=== PATIENT | female | born 1985 | race Two or more races ===

== ENCOUNTER 2016-11-01 19:01 | Emergency (ER) | payer BC ==
[2016-11-01] MEDS ORDERED: CYMBALTA PO (19:15)
[2016-11-01 19:56] LABS: AMPHETAMINE NEG (NEG); BARBITURATES NEG (NEG); BENZODIAZEPINES NEG (NEG); COCAINE NEG (NEG); MARIJUANA NEG (NEG); OPIATES NEG (NEG); TRICYCLIC ANTIDEPRESSANTS NEG (NEG); U METHADONE NEG (NEG)
== END 2016-11-01 20:27 | disposition home or self-care (01) ==
LOC: SED 19:01
PROVIDERS: Emergency Medicine
DX: F41.1 Generalized anxiety disorder (principal)
CPT/HCPCS: 80307; 84703; 99283